=== PATIENT | female | born 1975 | race Caucasian/White ===

== ENCOUNTER 2018-06-16 09:49 | Emergency (ER) | payer BC, OTHER ==
--- NOTE | 2018-06-16 10:49 | ED ---
Abdominal Pain/Female - HPI Summary HPI Summary: A 43 y/o female presents to the ED c/o LUQ pain starting 3 days ago. She describes the pain as sharp and constant and radiating to her left shoulder. Deep breathing worsens her pain. Pt was referred from [facility] and also suffers from migraines and anxiety. She has had a total hysterectomy. - History of Current Complaint Chief Complaint: EDChestPainROMI Stated Complaint: CHEST PAIN Time Seen by Provider: 06/16/18 10:08 Pain Intensity: 6 Allergies/Adverse Reactions: Allergies Allergy/AdvReac Type Severity Reaction Status Date / Time Penicillins Allergy Hives Verified 06/16/18 10:10 sulfamethoxazole Allergy Hives Verified 06/16/18 10:10 [From Bactrim] trimethoprim [From Bactrim] Allergy Hives Verified 06/16/18 10:10 PMH/Surg Hx/FS Hx/Imm Hx Endocrine/Hematology History: Denies: Hx Anticoagulant Therapy, Hx Diabetes, Hx Thyroid Disease Cardiovascular History: Denies: Hx Hypertension, Hx Pacemaker/ICD Respiratory History: Reports: Hx Asthma - EXERCISE INDUCED, Hx Seasonal Allergies Denies: Hx Chronic Obstructive Pulmonary Disease (COPD) GI History: Reports: Hx Diverticulosis, Hx Gastroesophageal Reflux Disease History: Denies: Hx Renal Disease Musculoskeletal History: Reports: Hx Arthritis, Hx Back Problems - disc surgery , Other Musculoskeletal History - Back surgery Sensory History: Denies: Hx Contacts or Glasses, Hx Hearing Aid Opthamlomology History: Denies: Hx Contacts or Glasses Neurological History: Reports: Hx Migraine - 1-2/YEAR, Other Neuro Impairments/ Disorders - L5-S1 DISCECTOMY ~2009 Denies: Hx Dementia, Hx Seizures Psychiatric History: Reports: Hx Anxiety, Hx Depression Denies: Hx Substance Abuse - Surgical History Surgery Procedure, Year, and Place: Foot ORIF with skin graft, 1986, [place]. Right reconstructive foot surgery, 1998, [place]. lumar discectomy, 2008 [place]. Hysterectomy 2010 [place]. appy and [place] [facility] [place] Anesthesia Reactions: No Infectious Disease History: No Infectious Disease History: Denies: Hx Hepatitis, Hx Human Immunodeficiency Virus (HIV), Traveled Outside the [place] in Last 30 Days - Family History Known Family History: Positive: Other - Negative malignant hyperthermia, negative anesthesia reaction. - Social History Alcohol Use: Rare Hx Substance Use: No Substance Use Type: Reports: None Hx Tobacco Use: No Smoking Status (MU): Never Smoked Tobacco Physical Exam Vital Signs On Initial Exam: Initial Vitals Temp Pulse Resp BP Pulse Ox 97.4 F 63 20 136/94 99 06/16/18 10:07 06/16/18 10:07 06/16/18 10:07 06/16/18 10:07 06/16/18 10:07 Diagnostics - Vital Signs Vital Signs Temp Pulse Resp BP Pulse Ox 06/16/18 10:07 97.4 F 63 20 136/94 99 - Laboratory Lab Statement: Any lab studies that have been ordered have been reviewed, and results considered in the medical decision making process. Discharge - Discharge Plan Referrals: Andrew Park MD [Primary Care Provider] - - Attestation Statements Document Initiated by Scribminnie: Yes
--- NOTE | 2018-06-16 10:52 | ED ---
HPI Chest Pain - HPI Summary HPI Summary: A 43 y/o female presents to the ED c/o intermittent L-anterior CP starting 3 days ago and worsening today. She describes the pain as sharp and constant and radiating to her left shoulder. Deep breathing worsens her pain. Pt was referred from [facility] and has PMHx: migraines and anxiety. She has had a total hysterectomy. PCP is Dr. Mackay. - History of Current Complaint Chief Complaint: EDChestPainROMI Time Seen by Provider: 06/16/18 10:08 Hx Obtained From: Patient Onset/Duration: Started Days Ago - 3 days, Still Present Timing: Constant Initial Severity: Moderate Current Severity: Moderate Pain Intensity: 6 Pain Scale Used: 0-10 Numeric Chest Pain Location: Left Anterior Chest Pain Radiates: Yes Chest Pain Radiates To:: Shoulder - left Character: Sharp/Stabbing Aggravating Factor(s): Deep Breaths Alleviating Factor(s): Nothing - Allergy/Home Medications Allergies/Adverse Reactions: Allergies Allergy/AdvReac Type Severity Reaction Status Date / Time Penicillins Allergy Hives Verified 06/16/18 10:10 sulfamethoxazole Allergy Hives Verified 06/16/18 10:10 [From Bactrim] trimethoprim [From Bactrim] Allergy Hives Verified 06/16/18 10:10 PMH/Surg Hx/FS Hx/Imm Hx Previously Healthy: No Endocrine/Hematology History: Denies: Hx Anticoagulant Therapy, Hx Diabetes, Hx Thyroid Disease Cardiovascular History: Denies: Hx Hypertension, Hx Pacemaker/ICD Respiratory History: Reports: Hx Asthma - EXERCISE INDUCED, Hx Seasonal Allergies Denies: Hx Chronic Obstructive Pulmonary Disease (COPD) GI History: Reports: Hx Diverticulosis, Hx Gastroesophageal Reflux Disease History: Denies: Hx Renal Disease Musculoskeletal History: Reports: Hx Arthritis, Hx Back Problems - disc surgery , Other Musculoskeletal History - Back surgery Sensory History: Denies: Hx Contacts or Glasses, Hx Hearing Aid Opthamlomology History: Denies: Hx Contacts or Glasses Neurological History: Reports: Hx Migraine - 1-2/YEAR, Other Neuro Impairments/ Disorders - L5-S1 DISCECTOMY ~2009 Denies: Hx Dementia, Hx Seizures Psychiatric History: Reports: Hx Anxiety, Hx Depression Denies: Hx Substance Abuse - Surgical History Surgery Procedure, Year, and Place: Foot ORIF with skin graft, 1986, [place]. Right reconstructive foot surgery, 1998, [place]. lumar discectomy, 2009 [place]. Hysterectomy 2011 [place]. appy and oopherectomy 2015 [facility] Hx Anesthesia Reactions: No Infectious Disease History: No Infectious Disease History: Denies: Hx Hepatitis, Hx Human Immunodeficiency Virus (HIV), Traveled Outside the [place] in Last 30 Days - Family History Known Family History: Positive: Other - Negative malignant hyperthermia, negative anesthesia reaction. - Social History Occupation: Employed Full-time Lives: With Family Alcohol Use: Rare Hx Substance Use: No Substance Use Type: Reports: None Hx Tobacco Use: No Smoking Status (MU): Never Smoked Tobacco Review of Systems Negative: Fever Positive: Chest Pain All Other Systems Reviewed And Are Negative: Yes Physical Exam - Summary Physical Exam Summary: Appearance: The patient is well-nourished in no acute distress and in no acute pain. Skin: The skin is warm and dry and skin color reflects adequate perfusion. HEENT: The head is normocephalic and atraumatic. The pupils are equal and reactive. The conjunctivae are clear and without drainage. Nares are patent and without drainage. Mouth reveals moist mucous membranes and the throat is without erythema and exudate. The external ears are intact. The ear canals are patent and without drainage. The tympanic membranes are intact. Neck: the neck is supple with full range of motion and non-tender. There are no carotid bruits. There is no neck vein distension. Respiratory: Chest is non-tender. Lungs are clear to auscultation and breath sounds are symmetrical and equal. Cardiovascular: Heart is regular rate and rhythm. There is no murmur or rub auscultated. There is no peripheral edema and pulses are symmetrical and equal. Abdomen: The abdomen is soft and non-tender. There are normal bowel sounds heard in all four quadrants and there is no organomegaly palpated. Musculoskeletal: There is no back tenderness noted. Extremities are non-tender with full range of motion. There is good capillary refill. There is no peripheral edema or calf tenderness elicited. Neurological: Patient is alert and oriented to person, place and time. The patient has symmetrical motor strength in all four extremities. Cranial nerves are grossly intact. Deep tendon reflexes are symmetrical and equal in all four extremities. Psychiatric: The patient has an appropriate affect and does not exhibit any anxiety or depression. Triage Information Reviewed: Yes Vital Signs On Initial Exam: Initial Vitals Temp Pulse Resp BP Pulse Ox 97.4 F 63 20 136/94 99 06/16/18 10:07 06/16/18 10:07 06/16/18 10:07 06/16/18 10:07 06/16/18 10:07 Vital Signs Reviewed: Yes Diagnostics - Vital Signs Vital Signs Temp Pulse Resp BP Pulse Ox 06/16/18 10:37 69 15 114/85 97 06/16/18 10:08 70 98 06/16/18 10:07 97.4 F 68 20 136/94 99 - Laboratory Result Diagrams: 06/16/18 10:39 06/16/18 10:39 Lab Statement: Any lab studies that have been ordered have been reviewed, and results considered in the medical decision making process. - Radiology CXR Xray Interpretation: No Acute Changes - IMPRESSION: No active cardiopulmonary dz is noted. ED provider has reviewed this report. Radiology Interpretation Completed By: Radiologist - EKG 1006 Cardiac Rate: NL - 64bpm EKG Rhythm: Sinus Rhythm EKG Interpretation: 1st degree block Re-Evaluation - Re-Evaluation 1 Re-Evaluation Time: 12:47 Change: Improved Comment: Pt feels better, updating her on plan. Repeat troponin in 45 mins. Chest Pain Course/Dx - Course Course Of Treatment: Ms. Vasques presented with about 3 days of intermittent left upper chest pain radiating to her left shoulder which has been constant all day today. It is mildly pleuritic and otherwise has no exacerbating or relieving factors and has no associated symptoms. She thinks it's anxiety. She was kept on a monitor here and worked up with EKG, labs including a delayed troponin and a d-dimer and chest x-ray. Her workup was within normal limits and she remained stable. I think she is safe for discharge and recommended follow-up with her PCP to deal with her anxiety. - Diagnoses Provider Diagnoses: Chest pain Discharge - Sign-Out/Discharge Documenting (check all that apply): Patient Departure - DC - Discharge Plan Condition: Stable Disposition: HOME Patient Education Materials: Chest Pain (ED) Referrals: Andrew Park MD [Primary Care Provider] - 3 Days Additional Instructions: Please return to the ED if you are experiencing new or worsening symptoms. Please follow up with your primary care provider in 2-3 days. - Billing Disposition and Condition Condition: STABLE Disposition: Home - Attestation Statements Document Initiated by Matthewibe: Yes Documenting Scribe: Em Freitas Provider For Whom Scribe is Documenting (Include Credential): Dr. Saeed Irvin MD Scribe Attestation: I, Em Freitas, scribed for Dr. Saeed Irvin MD on 06/16/18 at 1755. Scribe Documentation Reviewed: Yes Provider Attestation: The documentation as recorded by the [email or web address], Em Freitas accurately reflects the service I personally performed and the decisions made by me, Dr. Saeed Irvin MD
[2018-06-16 10:54] LABS: ABS Basophils 0 10^3/ul (0-0.2); ABS Eosinophils 0.1 10^3/ul (0-0.6); ABS Lymphocytes 1.8 10^3/ul (1.0-4.8); ABS Monocytes 0.4 10^3/ul (0-0.8); ABS Neutrophils 3.6 10^3/ul (1.5-7.7); ABS Nucleated RBC 0 10^3/ul; Hematocrit 39 % (35-47); Hemoglobin 13.1 g/dl (12.0-16.0); Lymphocyte % 31.3 % (25-47); Mean Corpuscular HGB Conc 34 g/dl (31-36); Mean Corpuscular Hemoglobin 29 pg (27-31); Mean Corpuscular Volume 87 fL (80-97); Mean Platelet Volume 6.9 um3 (7.4-10.4); Nucleated Red Blood Cells % 0.1; Platelet Count 273 10^3/ul (150-450); Red Blood Count 4.51 10^6/ul (4.00-5.40); Red Cell Distribution Width 14 % (10.5-15); White Blood Count 5.8 10^3/ul (3.5-10.8)
[2018-06-16 11:14] LABS: EGFR Non-African American 78.7 (>60)
--- NOTE | 2018-06-16 11:15 | RAD ---
Indication: Chest pain. Single frontal view of the chest performed at 1040 hours was reviewed. Comparison is made with previous exam dated January 09, 2015. No mediastinal shift is noted. Heart is of normal size and configuration. Lung hicks appear clear. IMPRESSION: NO ACTIVE CARDIOPULMONARY DISEASE IS NOTED.
[2018-06-16 15:33] VITALS: BP 123/88
== END 2018-06-16 15:33 | disposition home or self-care (01) ==
LOC: ED 09:49
DX: R07.81 Pleurodynia (principal); F41.9 Anxiety disorder, unspecified; I44.0 Atrioventricular block, first degree; Z88.0 Allergy status to penicillin; Z88.2 Allergy status to sulfonamides
CPT/HCPCS: 36415; 71045; 80053; 83605; 84443; 84484; 85025; 85379; 93005; 99282

== ENCOUNTER 2019-10-14 14:20 | Emergency (ER) | payer BC ==
[2019-10-14] MEDS ORDERED: NS 0.9% 1000 ML** 1,000 ML IV ONE (15:00)
[2019-10-14] MEDS ORDERED: Al Hydrox/Mg Hydrox/Simet LIQ* 30 ML UDC PO ONE (15:00)
[2019-10-14] MEDS ORDERED: Ondansetron INJ* 2 MG/ML VIAL IV ONE (15:00)
[2019-10-14 15:33] LABS: ABS Lymphocytes 1.4 10^3/ul (1.0-4.8); ABS Monocytes 0.3 10^3/ul (0-0.8); ABS Neutrophils 5.8 10^3/ul (1.5-7.7); Eosinophil % 0.5 %; Hematocrit 36 % (35-47); Hemoglobin 12.6 g/dL (12.0-16.0); Lymphocyte % 18.7 %; Mean Corpuscular HGB Conc 35 g/dL (31-36); Mean Corpuscular Hemoglobin 30 pg (27-31); Mean Corpuscular Volume 85 fL (80-97); Mean Platelet Volume 7.3 fL (7.4-10.4); Nucleated Red Blood Cells % 0.1; Platelet Count 273 10^3/uL (150-450); Red Blood Count 4.24 10^6 /uL (3.70-4.87); Red Cell Distribution Width 14 % (10-15); White Blood Count 7.5 10^3/uL (3.5-10.8)
[2019-10-14 15:50] LABS: Albumin 3.8 g/dL (3.2-5.2); Albumin/Globulin Ratio 1.5 (1-3); BUN/Creatinine Ratio 16.3 (8-20); Calcium 8.8 mg/dL (8.6-10.3); EGFR African American 94.7 (>60); EGFR Non-African American 78.3 (>60); Globulin 2.6 g/dL (2-4); Potassium 3.6 mmol/L (3.5-5.0); Total Bilirubin 0.4 mg/dL (0.2-1.0); Total Protein 6.4 g/dL (6.4-8.9)
[2019-10-14 15:55] LABS: HCG Pregnancy 5.61 mIU/mL
[2019-10-14] MEDS ORDERED: Metoclopramide IV* 5 MG/ML 2 ML VIAL IV ONE (16:07)
[2019-10-14 16:41] LABS: Urine Appearance Clear; Urine Bilirubin Negative (Negative); Urine Blood Negative (Negative); Urine Color Yellow; Urine Glucose Negative (Negative); Urine Ketones Trace (Negative); Urine Nitrite Negative (Negative); Urine Protein Negative (Negative); Urine Specific Gravity 1.015 (1.010-1.030); Urine Urobilinogen Negative (Negative)
[2019-10-14 17:07] VITALS: BP 130/65
--- NOTE | 2019-10-15 06:14 | ED ---
Nausea/Vomiting/Diarrhea HPI - HPI Summary HPI Summary: Pt is a 44yo F with no significant PMHx presenting to the ED with acute onset nausea, vomiting following a massage. Patient states she had a sweet's massage , 1 hour, and approximately 15 minutes following, she became violently ill, stating she had 20+ episodes nausea and vomiting. She arrives to the ED with continuing to vomit. Denies any hematemesis. Denies any abdominal pain , constipation or diarrhea. She has not been ill recently. She states approximately one hour prior to this, she felt well. Denies any known sick contacts. Denies any fevers, sweats, chills. No recent surgeries, abnormal food intake, allergies, trips. This has never happened to her before. No current modifying factors. - History of Current Complaint Chief Complaint: EDAbdPain Stated Complaint: VOMITING,SEVERE ABDOMINAL PAIN PER PT Time Seen by Provider: 10/14/19 14:55 Hx Obtained From: Patient ?: No Onset/Duration: Sudden Onset Timing: Constant Severity Initially: Severe Severity Currently: Moderate Pain Intensity: 0 Pain Scale Used: 0-10 Numeric Aggravating Factor(s): Nothing Alleviating Factor(s): Nothing Vomiting Frequency: Every 15-60 minutes Nausea/Vomiting Duration: 0-12 hours Vomiting Characteristics: Retching Diarrhea Presence: No - Risk Factors Influenza Risk Factors: Negative Surgical Obstruction Risk Factor(s): Negative - Allergies/Home Medications Allergies/Adverse Reactions: Allergies Allergy/AdvReac Type Severity Reaction Status Date / Time Penicillins Allergy Hives Verified 10/14/19 14:24 sulfamethoxazole Allergy Hives Verified 10/14/19 14:24 [From Bactrim] trimethoprim [From Bactrim] Allergy Hives Verified 10/14/19 14:24 PMH/Surg Hx/FS Hx/Imm Hx Previously Healthy: Yes Endocrine/Hematology History: Denies: Hx Anticoagulant Therapy, Hx Diabetes, Hx Thyroid Disease Cardiovascular History: Denies: Hx Hypertension, Hx Pacemaker/ICD Respiratory History: Reports: Hx Asthma - EXERCISE INDUCED, Hx Seasonal Allergies Denies: Hx Chronic Obstructive Pulmonary Disease (COPD) GI History: Reports: Hx Diverticulosis, Hx Gastroesophageal Reflux Disease History: Denies: Hx Renal Disease Musculoskeletal History: Reports: Hx Arthritis, Hx Back Problems - disc surgery , Other Musculoskeletal History - Back surgery Sensory History: Denies: Hx Contacts or Glasses, Hx Hearing Aid Opthamlomology History: Denies: Hx Contacts or Glasses Neurological History: Reports: Hx Migraine - 1-2/YEAR, Other Neuro Impairments/ Disorders - L5-S1 DISCECTOMY ~2009 Denies: Hx Dementia, Hx Seizures Psychiatric History: Reports: Hx Anxiety, Hx Depression Denies: Hx Substance Abuse - Surgical History Surgery Procedure, Year, and Place: Foot ORIF with skin graft, 1986, [place]. Right reconstructive foot surgery, 1998, [place]. lumar discectomy, 2008 [place]. Hysterectomy 2010 [place]. appy and oopherectomy 2015 [facility] [place]x Anesthesia Reactions: No - Immunization History Hx Pertussis Vaccination: No Immunizations Up to Date: Yes Infectious Disease History: No Infectious Disease History: Denies: Hx Hepatitis, Hx Human Immunodeficiency Virus (HIV), Traveled Outside the [place] in Last 30 Days - Family History Known Family History: Positive: Other - Negative malignant hyperthermia, negative anesthesia reaction. - Social History Occupation: Employed Full-time Lives: With Family Alcohol Use: None Hx Substance Use: No Substance Use Type: Reports: None Hx Tobacco Use: No Smoking Status (MU): Never Smoked Tobacco Review of Systems Negative: Fever, Chills, Fatigue, Skin Diaphoresis Negative: Palpitations, Chest Pain Negative: Shortness Of Breath, Cough Positive: Vomiting, Nausea Genitourinary: Negative Positive: no symptoms reported, see HPI Negative: Arthralgia, Myalgia Skin: Negative All Other Systems Reviewed And Are Negative: Yes Physical Exam Triage Information Reviewed: Yes Vital Signs On Initial Exam: Initial Vitals Temp Pulse Resp BP Pulse Ox 97.8 F 84 16 137/95 97 10/14/19 14:22 10/14/19 14:22 10/14/19 14:22 10/14/19 14:22 10/14/19 14:22 Vital Signs Reviewed: Yes Skin: Positive: Skin Color Reflects Adequate Perfusion Head/Face: Positive: Normal Head/Face Inspection Eyes: Positive: EOMI, Conjunctiva Clear Neck: Positive: Supple, Nontender, No Lymphadenopathy Respiratory/Lung Sounds: Positive: Clear to Auscultation, Breath Sounds Present Cardiovascular: Positive: RRR, Pulses are Symmetrical in both Upper and Lower Extremities Abdomen Description: Positive: Soft. Negative: Nontender, CVA Tenderness (R), CVA Tenderness (L) Bowel Sounds: Positive: Present Musculoskeletal: Positive: Normal, Strength/ROM Intact Neurological: Positive: Speech Normal Psychiatric: Positive: Normal, Affect/Mood Appropriate AVPU Assessment: Alert Procedures - Sedation Patient Received Moderate/Deep Sedation with Procedure: No Diagnostics - Vital Signs Vital Signs Temp Pulse Resp BP Pulse Ox 10/14/19 17:07 96.7 F 80 18 130/65 97 10/14/19 17:05 130/65 10/14/19 17:00 80 97 10/14/19 16:00 71 98 10/14/19 15:57 79 138/86 97 10/14/19 15:11 68 100 10/14/19 14:22 97.8 F 84 16 137/95 97 - Laboratory Lab Results: Lab Results 10/14/19 10/14/19 10/14/19 Range/Units 15:24 15:24 16:31 WBC 7.5 (3.5-10.8) 10^3/uL RBC 4.24 (3.70-4.87) 10^6 /uL Hgb 12.6 (12.0-16.0) g/dL Hct 36 (35-47) % MCV 85 (80-97) fL MCH 30 (27-31) pg MCHC 35 (31-36) g/dL RDW 14 (10-15) % Plt Count 273 (150-450) 10^3/uL MPV 7.3 L (7.4-10.4) fL Neut % (Auto) 76.9 % Lymph % (Auto) 18.7 % [place] % (Auto) 3.4 % Eos % (Auto) 0.5 % Baso % (Auto) 0.5 % Absolute Neuts (auto) 5.8 (1.5-7.7) 10^3/ul Absolute Lymphs (auto) 1.4 (1.0-4.8) 10^3/ul Absolute Monos (auto) 0.3 (0-0.8) 10^3/ul Absolute Eos (auto) 0.0 (0-0.6) 10^3/ul Absolute Basos (auto) 0.0 (0-0.2) 10^3/ul Absolute Nucleated RBC 0.0 10^3/ul Nucleated RBC % 0.1 Sodium 138 (135-145) mmol/L Potassium 3.6 (3.5-5.0) mmol/L Chloride 107 (101-111) mmol/L Carbon Dioxide 22 (22-32) mmol/L Anion Gap 9 (2-11) mmol/L BUN 13 (6-24) mg/dL Creatinine 0.80 (0.51-0.95) mg/dL Est GFR ( Amer) 94.7 (>60) Est GFR (Non-Af Amer) 78.3 (>60) BUN/Creatinine Ratio 16.3 (8-20) Glucose 112 H (70-100) mg/dL Calcium 8.8 (8.6-10.3) mg/dL Total Bilirubin 0.40 (0.2-1.0) mg/dL AST 18 (13-39) U/L ALT 25 (7-52) U/L Alkaline Phosphatase 75 (34-104) U/L Total Protein 6.4 (6.4-8.9) g/dL Albumin 3.8 (3.2-5.2) g/dL Globulin 2.6 (2-4) g/dL Albumin/Globulin Ratio 1.5 (1-3) Lipase 17 (11.0-82.0) U/L Beta HCG, Quant 5.61 mIU/mL Urine Color Yellow Urine Appearance Clear Urine pH 8.0 (5-9) Ur Specific [place] 1.015 (1.010-1.030) Urine Protein Negative (Negative) Urine Ketones Trace A (Negative) Urine Blood Negative (Negative) Urine Nitrate Negative (Negative) Urine Bilirubin Negative (Negative) Urine Urobilinogen Negative (Negative) Ur Leukocyte Esterase Negative (Negative) Urine Glucose Negative (Negative) Result Diagrams: 10/14/19 15:24 10/14/19 15:24 Lab Statement: Any lab studies that have been ordered have been reviewed, and results considered in the medical decision making process. Naus/Vom/Diarrhea Course/Dx - Course Course Of Treatment: On arrival into the patient appears ill, retching, and appears in acute distress. Dav[place] on arrival, she is given 1 L fluids, Zofran given with good relief. Labs obtained which are unremarkable. UA obtained which is negative. She continues to complain of nausea on reexamination approximately one hour later, and she was subsequently given Reglan. On reexamination, patient feels well. Denies any nausea or vomiting at this time and is sitting upright in bed. She is drinking well and denies any symptoms. She denies abd pain at this time. She is dx with acute n/v and given reglan and zofran for at home. - Differential Dx/Diagnosis Differential Diagnoses - Female: Other - food poisoning, acute nausea/vomiting, gastroenteritis, inflammation Provider Diagnosis: Nausea and vomiting Condition At Discharge: Stable Discharge ED - Sign-Out/Discharge Documenting (check all that apply): Patient Departure - Discharge Plan Condition: Stable Disposition: HOME Prescriptions: Metoclopramide TAB* [Reglan TAB*] 10 mg PO Q6H PRN #12 tab PRN Reason: Nausea Ondansetron ODT TAB* [Zofran 4 MG Odt TAB*] 4 mg PO Q6H PRN #12 tab.odt MDD 4 PRN Reason: Nausea Patient Education Materials: Acute Nausea and Vomiting (ED) Referrals: Andrew Park MD [Primary Care Provider] - - Billing Disposition and Condition Condition: STABLE Disposition: Home
== END 2019-10-14 17:07 | disposition home or self-care (01) ==
LOC: ED 14:20
DX: R11.2 Nausea with vomiting, unspecified (principal); K21.9 Gastro-esophageal reflux disease without esophagitis; F41.9 Anxiety disorder, unspecified; F32.9 Major depressive disorder, single episode, unspecified; Z90.710 Acquired absence of both cervix and uterus; Z90.721 Acquired absence of ovaries, unilateral; Z90.89 Acquired absence of other organs; Z88.0 Allergy status to penicillin; Z88.1 Allergy status to other antibiotic agents; Z88.2 Allergy status to sulfonamides
CPT/HCPCS: 36415; 80053; 81003; 83690; 84702; 85025; 96361; 96374; 96375; 99283; A9270-GY; J2405; J2765